=== PATIENT | female | born 1990 | race Two or more races ===

== ENCOUNTER 2024-12-31 12:47 | Emergency (ER) | payer MEDICAID ==
[~2024-12-31] VITALS: Ht 149.9 cm; Wt 70.3 kg
[2024-12-31 12:50] VITALS: TEMP 98.3
[2024-12-31] MEDS ORDERED: ONDANSETRON HCL/PF 4 MG/2 ML VIAL ONE (13:15)
[2024-12-31] MEDS: ONDANSETRON HCL/PF 4 MG/2 ML VIAL IVP ONE (13:25)
[2024-12-31] MEDS: IV NS 0.9% 1,000 ML BAG IV ONE (13:27)
[2024-12-31 13:34] LABS: PLATELET COUNT (AUTO) 615 K/uL (150-450); RED BLOOD CELL COUNT(AUTO) 5.17 MIL/uL (4.0-5.2); RED CELL DISTRIBUTION WIDTH 21.1 % (11.5-15.0); WHITE BLOOD COUNT (AUTO) 11.3 K/uL (4.3-11.0)
[2024-12-31 14:03] LABS: APPEARANCE,URINE SLIGHTLY CLOUDY (CLEAR); BLOOD, URINE NEGATIVE Ery/uL (NEGATIVE); LEUKOCYTE ESTERASE ,URINE NEGATIVE (NEGATIVE); NITRITE, URINE NEGATIVE (NEGATIVE); UGLUCOSE NEGATIVE (NEGATIVE)
[2024-12-31 14:11] LABS: SODIUM SERUM 140 mmol/L (136-145)
[2024-12-31 14:12] LABS: CALCIUM, SERUM 9.8 mg/dL (8.5-10.1); CREATININE 1.0 mg/dL (0.6-1.3); UREA NITROGEN, BLOOD 19 mg/dL (7-18)
[2024-12-31 14:16] LABS: ASPARTATE AMINOTRANSFERASE 17 U/L (15-37); TOTAL PROTEIN, SERUM 8.4 g/dL (6.4-8.2)
[2024-12-31 14:36] LABS: ADD URINE CULTURE YES; SQUAMOUS EPITHELIAL CELL,UR Few /HPF (None Seen); URINE AMORPHOUS URATE Many /HPF (None Seen)
[2024-12-31] MEDS ORDERED: HALOPERIDOL LACTATE INJ 5 MG/ML VIAL ONE (15:45)
[2024-12-31] MEDS: HALOPERIDOL LACTATE INJ 5 MG/ML VIAL IV ONE (15:55)
[2024-12-31] MEDS ORDERED: ONDA4TAB11 PO (16:58)
[2024-12-31 17:53] VITALS: BP 152/104; O2SAT 99
== END 2024-12-31 17:30 | disposition home or self-care (01) ==
LOC: ER 12:52
DX: R10.13 Epigastric pain (principal); R11.2 Nausea with vomiting, unspecified; R07.9 Chest pain, unspecified; R94.31 Abnormal electrocardiogram [ECG] [EKG]; Z87.19 Personal history of other diseases of the digestive system; Z90.49 Acquired absence of other specified parts of digestive tract; Z60.2 Problems related to living alone
CPT/HCPCS: 99285; 96374; 71045; 96361; 96375; 93005; 85025; 80048; 87086; 83690; 80076; 81001; 36415; 84484 ×2; J1630; J2405; J7030

== ENCOUNTER 2025-03-25 19:40 | Emergency (ER) | payer MEDICAID ==
[~2025-03-25] VITALS: Ht 149.9 cm; Wt 61.2 kg
[~2025-03-25 19:40] MED LIST: ONDA4TAB11 PO
[2025-03-25] MEDS ORDERED: ONDANSETRON HCL/PF 4 MG/2 ML VIAL ONE (20:30)
[2025-03-25] MEDS: IV NS 0.9% 1,000 ML BAG IV ONE (20:34)
[2025-03-25] MEDS: ONDANSETRON HCL/PF 4 MG/2 ML VIAL IVP ONE (20:34)
[2025-03-25 20:38] LABS: PLATELET COUNT (AUTO) 564 K/uL (150-450); RED BLOOD CELL COUNT(AUTO) 5.45 MIL/uL (4.0-5.2); RED CELL DISTRIBUTION WIDTH 22.3 % (11.5-15.0); WHITE BLOOD COUNT (AUTO) 12.1 K/uL (4.3-11.0)
[2025-03-25 20:45] LABS: CALCIUM, SERUM 9.5 mg/dL (8.5-10.1); CREATININE 0.8 mg/dL (0.6-1.3); SODIUM SERUM 138.0 mmol/L (136-145); UREA NITROGEN, BLOOD 16.0 mg/dL (7-18)
[2025-03-25 20:51] LABS: ASPARTATE AMINOTRANSFERASE 16.0 U/L (15-37); TOTAL PROTEIN, SERUM 8.9 g/dL (6.4-8.2)
[2025-03-25 20:56] LABS: APPEARANCE,URINE CLEAR (CLEAR); BLOOD, URINE NEGATIVE Ery/uL (NEGATIVE); LEUKOCYTE ESTERASE ,URINE NEGATIVE (NEGATIVE); NITRITE, URINE NEGATIVE (NEGATIVE); UGLUCOSE NEGATIVE (NEGATIVE)
[2025-03-25 20:58] LABS: PREGNANCY TEST URINE QUAL NEGATIVE (NEGATIVE)
[2025-03-25 21:05] LABS: SQUAMOUS EPITHELIAL CELL,UR Many /HPF (None Seen)
[2025-03-25 21:06] LABS: ADD URINE CULTURE YES
[2025-03-25] MEDS ORDERED: FAMOTIDINE/PF INJ 20 MG/2 ML VIAL IV ONE (21:19)
[2025-03-25] MEDS ORDERED: METOCLOPRAMIDE HCL 10 MG/2 ML VIAL ONE (21:19)
[2025-03-25] MEDS: METOCLOPRAMIDE HCL 10 MG/2 ML VIAL IV ONE (21:22)
[2025-03-25] MEDS: FAMOTIDINE/PF INJ 20 MG/2 ML VIAL IV ONE (21:22)
[2025-03-25] MEDS ORDERED: OMEP20CA15 PO (21:42)
[2025-03-25] MEDS ORDERED: FAMO20TA80 PO (21:42)
[2025-03-25] MEDS ORDERED: ONDA4TAB5 PO (21:42)
[2025-03-25] MEDS ORDERED: MAG355OR18 PO (21:42)
[2025-03-25 21:51] VITALS: BP 180/124; TEMP 98.1; O2SAT 98
== END 2025-03-25 21:51 | disposition home or self-care (01) ==
LOC: ER 19:42
DX: R10.13 Epigastric pain (principal); R11.2 Nausea with vomiting, unspecified; F12.90 Cannabis use, unspecified, uncomplicated; K29.70 Gastritis, unspecified, without bleeding; Z87.19 Personal history of other diseases of the digestive system; Z90.49 Acquired absence of other specified parts of digestive tract
CPT/HCPCS: 99285; 96374; 96375; 76705; 96361; 85025; 80048; 87086; 83690; 80076; 84703; 81001; 36415; J1200; J1308; J2765; J2405; J7030